=== PATIENT | male | born 1945 | race Caucasian/White ===

== ENCOUNTER 2022-02-09 11:07 | Inpatient (IN) | payer MEDICARE ==
[~2022-02-09 11:07] MED LIST: Iopamidol 370 76% 100 ML VIAL ONE
[2022-02-09] MEDS ORDERED: Aspirin Chewable 81 MG TAB ONE (11:18)
[2022-02-09 11:42] LABS: #Basophils 0.1 10x3/uL (0.0-0.2); #Eosinphils 0.3 10x3/uL (0.0-0.5); #Monocytes 0.5 10x3/uL (0.0-1.1); #Neutrophils 4.1 10x3/uL (1.5-8.4); %Basophils 0.6 % (0.0-2.0); %Eosinophils 3.6 % (0.0-6.0); %Lymphocytes 42.3 % (18.0-47.0); %Monocytes 5.6 % (0.0-10.0); %Neutrophils 47.1 % (40.0-75.0); Hemoglobin 15.2 g/dL (13.5-17.5); Mean Corpuscular HGB CONC 34.2 g/dL (32.0-36.0); Mean Corpuscular Hemoglobin 30.3 pg (27.0-33.0); Mean Corpuscular Volume 88.6 fl (81.2-95.1); Platelet Count 161 10x3/uL (150-450); RBC Distribution Width 13.3 % (11.5-14.5); Red Blood Cell (RBC) Count 5.01 10x6/uL (4.32-5.72); White Blood Cell (WBC) Count 8.6 10x3/uL (3.5-10.5)
[2022-02-09 11:54] LABS: ALT (SGPT) 33 U/L (8-55); AST (SGOT) 30 U/L (5-34); Alkaline Phosphatase 76 U/L (40-110); Anion Gap 18 mmol/L (10-20); BUN (Urea Nitrogen) 19 mg/dL (8.4-25.7); Calc. Creatinine Clearance 0 mL/min (70-130); Calcium 9.1 mg/dL (7.8-10.44); Carbon Dioxide 20 mmol/L (23-31); Chloride 104 mmol/L (98-107); Estimated GFR 50; Globulin 2.6 g/dL (2.4-3.5); Glucose 317 mg/dL (83-110); Lipase 34 U/L (8-78); Protein, Total 6.6 g/dL (5.8-8.1); Sodium 138 mmol/L (136-145)
[2022-02-09] MEDS ORDERED: Heparin 25,000 units/D5W 500 ML ONE (12:16)
[2022-02-09] MEDS ORDERED: Heparin 5,000 UNITS/ML VIAL ONE (12:16)
[2022-02-09 12:38] LABS: PTT 26.7 sec (22.0-33.0); Prothrombin Time 11.1 sec (9.5-12.1)
[2022-02-09] MEDS ORDERED: Dextrose 5% in Water 1,000 ML IV PRN (12:51)
[2022-02-09] MEDS ORDERED: HumaLOG 300 UNITS/3 ML VIAL SC PRN (12:51)
[2022-02-09] MEDS ORDERED: Dextrose 50% Abboject 50 ML SYRINGE SLOW IVP PRN (12:51)
[2022-02-09] MEDS ORDERED: Heparin 10,000 UNITS/ 10 ML VIAL SLOW IVP SCH (13:00)
[2022-02-09] MEDS ORDERED: Heparin 25,000 units/D5W 500 ML IVPB SCH (13:00)
[2022-02-09 13:39] LABS: Bilirubin Neg (Negative); Blood, Urine 10 (Negative); Clarity Clear (Clear); Glucose, Urine (Dipstick) >=1000 mg/dL (Negative); Ketone, Urine 15 mg/dL (Negative); Leukocyte Negative (Negative); Nitrite Negative (Negative); Protein, Urine (Dipstick) 30 mg/dl (Neg-Trace); Urobilinogen Normal mg/dL (Less than 2)
[2022-02-09 13:47] LABS: Magnesium 2.1 mg/dL (1.6-2.6); Phosphorus 3.8 mg/dL (2.3-4.7)
[2022-02-09 13:50] LABS: Bacteria/HPF None Seen HPF (None Seen); RBC/HPF 0-3 HPF (0-3); Squamous Epithelial 0-3 HPF (0-3); WBC/HPF None Seen HPF (0-3)
[2022-02-09] MEDS: HumaLOG 300 UNITS/3 ML VIAL SC PRN ×2 (14:17→17:28)
[2022-02-09 14:39] LABS: Lactic Acid 1.4 mmol/L (0.5-2.2)
[2022-02-09 15:01] LABS: Troponin I 0.303 ng/mL (< 0.028)
[2022-02-09 18:01] LABS: Hemoglobin 14.6 g/dL (13.5-17.5); Platelet Count 163 10x3/uL (150-450)
[2022-02-09 18:26] LABS: Troponin I 0.744 ng/mL (< 0.028)
[2022-02-09 18:36] LABS: PTT 130.6 sec (22.0-33.0)
[2022-02-09] MEDS: Lantus 1000 UNITS/10 ML VIAL SC SCH (20:29)
[2022-02-09] MEDS ORDERED: Famotidine 20 MG TAB PO SCH (21:00)
[2022-02-10 00:20] LABS: Troponin I 0.583 ng/mL (< 0.028)
[2022-02-10 02:45] LABS: #Eosinphils 0.3 10x3/uL (0.0-0.5); #Monocytes 0.5 10x3/uL (0.0-1.1); #Neutrophils 4.5 10x3/uL (1.5-8.4); %Basophils 0.5 % (0.0-2.0); %Eosinophils 3.3 % (0.0-6.0); %Lymphocytes 31.7 % (18.0-47.0); %Monocytes 6.3 % (0.0-10.0); %Neutrophils 57.8 % (40.0-75.0); Hemoglobin 14.1 g/dL (13.5-17.5); Mean Corpuscular HGB CONC 34.7 g/dL (32.0-36.0); Mean Corpuscular Hemoglobin 30.6 pg (27.0-33.0); Mean Corpuscular Volume 88.1 fl (81.2-95.1); Mean Platelet Volume 10.1 fl (7.4-10.4); Platelet Count 159 10x3/uL (150-450); RBC Distribution Width 13.4 % (11.5-14.5); Red Blood Cell (RBC) Count 4.61 10x6/uL (4.32-5.72); White Blood Cell (WBC) Count 7.8 10x3/uL (3.5-10.5)
[2022-02-10 03:10] LABS: ALT (SGPT) 27 U/L (8-55); AST (SGOT) 20 U/L (5-34); Albumin 3.5 g/dL (3.4-4.8); Alkaline Phosphatase 65 U/L (40-110); Anion Gap 11 mmol/L (10-20); BUN (Urea Nitrogen) 17 mg/dL (8.4-25.7); Bilirubin, Total 0.6 mg/dL (0.2-1.2); Calc. Creatinine Clearance 60 mL/min (70-130); Calcium 8.9 mg/dL (7.8-10.44); Carbon Dioxide 25 mmol/L (23-31); Chloride 108 mmol/L (98-107); Estimated GFR 63; Globulin 2.5 g/dL (2.4-3.5); Glucose 178 mg/dL (83-110); Potassium 3.7 mmol/L (3.5-5.1); Sodium 140 mmol/L (136-145)
[2022-02-10 06:22] VITALS: BMI 26.2
[2022-02-10] MEDS: HumaLOG 300 UNITS/3 ML VIAL SC PRN ×3 (08:25→16:31)
[2022-02-10 09:00] LABS: PTT Greater than 139.0 sec (22.0-33.0)
[2022-02-10] MEDS ORDERED: Labetalol HCl 100 MG/20 ML VIAL SLOW IVP PRN (17:55)
[2022-02-10] MEDS: Enoxaparin Sodium 80 MG/0.8 ML SYRINGE SC SCH (18:05)
[2022-02-10] MEDS: Lantus 1000 UNITS/10 ML VIAL SC SCH (20:38)
[2022-02-10] MEDS ORDERED: Famotidine 20 MG TAB PO SCH (21:00)
[2022-02-11 04:17] LABS: Anion Gap 13 mmol/L (10-20); BUN (Urea Nitrogen) 17 mg/dL (8.4-25.7); Calc. Creatinine Clearance 60 mL/min (70-130); Calcium 8.8 mg/dL (7.8-10.44); Carbon Dioxide 24 mmol/L (23-31); Chloride 110 mmol/L (98-107); Estimated GFR 66; Glucose 136 mg/dL (83-110); Potassium 3.7 mmol/L (3.5-5.1); Sodium 143 mmol/L (136-145)
[2022-02-11] MEDS: Enoxaparin Sodium 80 MG/0.8 ML SYRINGE SC SCH ×2 (08:29→18:06)
[2022-02-11] MEDS: Famotidine 20 MG TAB PO SCH ×2 (08:29→21:52)
[2022-02-11] MEDS: HumaLOG 300 UNITS/3 ML VIAL SC PRN (11:51)
[2022-02-11] MEDS ORDERED: Hydrochlorothiazide 25 MG TAB PO SCH (13:00)
[2022-02-11] MEDS: Amlodipine 5 MG TAB PO SCH (13:42)
[2022-02-11] MEDS: Lantus 1000 UNITS/10 ML VIAL SC SCH (21:52)
[2022-02-12 04:52] LABS: Anion Gap 14 mmol/L (10-20); BUN (Urea Nitrogen) 21 mg/dL (8.4-25.7); Calc. Creatinine Clearance 61 mL/min (70-130); Calcium 9.3 mg/dL (7.8-10.44); Carbon Dioxide 23 mmol/L (23-31); Chloride 108 mmol/L (98-107); Estimated GFR 68; Glucose 108 mg/dL (83-110); Potassium 3.4 mmol/L (3.5-5.1); Sodium 142 mmol/L (136-145)
[2022-02-12] MEDS: Enoxaparin Sodium 80 MG/0.8 ML SYRINGE SC SCH (07:36)
[2022-02-12] MEDS: Famotidine 20 MG TAB PO SCH (08:07)
[2022-02-12] MEDS ORDERED: Hydrochlorothiazide 25 MG TAB PO SCH (09:00)
[2022-02-12 11:42] VITALS: BP 144/67; TEMP 98.3
[2022-02-12] MEDS ORDERED: FLU VACC QS2022-23(65YR UP)/PF 240 MCG/0.7 ML SYRINGE IM ONE (15:15)
== END 2022-02-12 11:44 | disposition home or self-care (01) | DRG 176 ==
LOC: CSHERS 11:07 → CSHIMCU 13:52 → CSHTELE 02-11 20:18
PROVIDERS: ADMIT Family Medicine; ATTEND Family Medicine
DX: I26.92 Saddle embolus of pulmonary artery without acute cor pulmonale (principal); I82.402 Acute embolism and thrombosis of unspecified deep veins of left lower extremity; N17.9 Acute kidney failure, unspecified; I10 Essential (primary) hypertension; E11.9 Type 2 diabetes mellitus without complications; I45.10 Unspecified right bundle-branch block; I07.1 Rheumatic tricuspid insufficiency; Z86.73 Personal history of transient ischemic attack (TIA), and cerebral infarction without residual deficits; Z88.8 Allergy status to other drugs, medicaments and biological substances; Z98.890 Other specified postprocedural states
CPT/HCPCS: 36415; 36416; 71045; 71275; 80048; 80053; 81003; 81015; 83605; 83690; 83735; 83880; 84100; 84443; 84484; 85025; 85610; 85730; 93005; 93306; 94760; 96365; 96376; J1644; J1650; J1815; Q9967